=== PATIENT | male | born 1980 | race Caucasian/White ===

== ENCOUNTER → 2020-12-24 | Outpatient (CLI) | payer BC ==
[~2020-12-24] VITALS: Ht 182.9 cm; Wt 129.3 kg
[2020-12-24 09:29] LABS: HEMOGLOBIN 11.5 gm/dl (14.0-17.5); RED BLOOD COUNT 4.64 M/UL (4.20-5.50); WHITE BLOOD COUNT 13.6 K/UL (4.5-11.0)
[2020-12-25 09:14] LABS: HBSAG SCREEN Negative (Negative); HEP A AB, IGM Negative (Negative); HEP B CORE AB, IGM Negative (Negative); HEP C VIRUS AB <0.1 (0.0-0.9)
[2020-12-28 05:09] LABS: QUANTIFERON MITOGEN VALUE >10.00 IU/mL (.); QUANTIFERON NIL VALUE 0.03 IU/mL (.); QUANTIFERON TB1 AG VALUE 0.01 IU/mL (.); QUANTIFERON TB2 AG VALUE 0.02 IU/mL (.); QUANTIFERON-TB GOLD PLUS Negative (Negative)
== END ==
LOC: OPSV 12-20 08:00
DX: N05.0 Unspecified nephritic syndrome with minor glomerular abnormality (principal)
CPT/HCPCS: 36415; 80074; 85025; 96375; 96413; 96415; J2930; J7030; J9312

== ENCOUNTER → 2021-01-09 | Outpatient (CLI) | payer BC ==
[2021-01-09 11:18] LABS: HEMOGLOBIN 12.4 gm/dl (14.0-17.5); RED BLOOD COUNT 5.12 M/UL (4.20-5.50); WHITE BLOOD COUNT 10.2 K/UL (4.5-11.0)
[2021-01-09 12:07] LABS: BUN/CREATININE RATIO 16 (0-10)
== END ==
LOC: LAB 10:59
PROVIDERS: Anesthesiology
DX: Z53.9 Procedure and treatment not carried out, unspecified reason (principal)
CPT/HCPCS: 80053; 85027

== ENCOUNTER → 2021-01-10 | Outpatient (CLI) | payer BC ==
[~2021-01-10] VITALS: Ht 182.9 cm; Wt 129.3 kg
[2021-01-10 07:41] LABS: HEMOGLOBIN 11.7 gm/dl (14.0-17.5); RED BLOOD COUNT 4.92 M/UL (4.20-5.50)
[2021-01-10 07:42] LABS: WHITE BLOOD COUNT 7.4 K/UL (4.5-11.0)
== END ==
LOC: OPSV 01-07 08:00
DX: N05.0 Unspecified nephritic syndrome with minor glomerular abnormality (principal)
CPT/HCPCS: 85025; 96375; 96413; 96415; J2930; J7030; J9312

== ENCOUNTER → 2021-07-23 | Outpatient (CLI) | payer BC ==
[~2021-07-23] VITALS: Ht 182.9 cm; Wt 129.3 kg
[2021-07-23 07:30] LABS: HEMOGLOBIN 11.4 gm/dl (14.0-17.5); RED BLOOD COUNT 4.94 M/UL (4.20-5.50); WHITE BLOOD COUNT 4.8 K/UL (4.5-11.0)
== END ==
LOC: OPSV 07-11 07:00
PROVIDERS: Internal Medicine
DX: N05.0 Unspecified nephritic syndrome with minor glomerular abnormality (principal)
CPT/HCPCS: 85025; 96375; 96413; 96415; J2930; J7030; J9312